=== PATIENT | female | born 1960 | race Caucasian/White ===

== ENCOUNTER 2016-12-20 16:23 | Emergency (ER) | payer BC ==
[~2016-12-20] VITALS: Ht 157.5 cm; Wt 67.0 kg
[2016-12-20 16:41] VITALS: BP 152/80
[2016-12-20] MEDS ORDERED: LEVO75TA7 PO (16:46)
[2016-12-20] MEDS ORDERED: ACETAMINOPHEN 325MG TABLET PO ONE (17:15)
== END 2016-12-20 17:40 | disposition home or self-care (01) ==
LOC: ER 16:24
DX: M25.80 Other specified joint disorders, unspecified joint (principal); I10 Essential (primary) hypertension; E03.9 Hypothyroidism, unspecified; Z98.51 Tubal ligation status; Z98.890 Other specified postprocedural states; Z88.5 Allergy status to narcotic agent
CPT/HCPCS: 99282